=== PATIENT | male | born 1940 | race Caucasian/White ===

== ENCOUNTER 2021-02-07 11:22 | Inpatient (IN) | payer OTHER ==
[~2021-02-07] VITALS: Ht 167.6 cm; Wt 112.8 kg
[~2021-02-07 11:22] MED LIST: ALDACTONE 25MG25 M1 PO; ALEVE 220MG220 MG PO; ANTIVERT 25MG25 MG PO; CALCIUM 600 PLU1 TAB PO; CEPHALEXIN500 M1 PO; COZAAR100 MG PO; CRESTOR5 MG PO; FISH OIL 1000MG1 CAP PO; HCTZ 25MG25 MG PO; INDERAL; LEVAQUIN 750MG750 M1 PO; LOPID 600M600 MG/TAB PO; LOTREL 2.5 MG-11 CAP PO; MAGNESIUM200 MG PO; MOTRIN 600600 MG/TAB PO; MUCINEX 60600 MG/TA1 PO; MVI; NATURE'S BLEND500 M1 PO; NORVASC2.5 MG PO; OSCAL 500 TAB500 MG PO; TRIGLYCERIDE; TYLENOL 325MG325 MG PO
[2021-03-30] VITALS (12 sets, daily range): BP systolic 119–142; BP diastolic 44–79; PULSE 52–90; TEMP 97.8–98.8
[2021-03-30] MEDS ORDERED: NORVASC 5MG5 MG/TAB PO (06:47)
[2021-03-30] MEDS ORDERED: ASPIRIN 81M81 MG/TA2 PO (06:48)
[2021-03-30] MEDS ORDERED: HCTZ 25MG TAB25 MG PO (06:49)
[2021-03-30] MEDS ORDERED: COZAAR100 MG PO (06:50)
[2021-03-30] MEDS ORDERED: PRILOSEC 20MG20 MG PO (06:51)
[2021-03-30] MEDS ORDERED: CRESTOR 10MG10 MG PO (06:52)
--- NOTE | 2021-03-30 10:15 | NUR ---
PATIENT ADMITED INTO ROOM 329 POST OP LTK. LEFT KNEE DRESSING IS CD&I WITH ACEWRAP AND ICE PACK INPLACE. PATIENT IS ABLE TO SL WIGGLES TOES TO BLE. NO C/O PAIN OR NAUSEA. POST OP FLUIDS INFUSING INTO LEFT HAND IV. NO MCKEON. LIQUIDS PROVIDED AT BEDSIDE. HEAD TO TOE ASSESSMENT COMPLETE. AT BEDSIDE. ORIENTED TO ROOM. CALL LIGHT IN REACH.
--- NOTE | 2021-03-30 22:26 | NUR ---
REPORT RECEIVED FROM NURSE BHAGAT. PATIENT RECEIVED IN BED, ALERT AND ORIENTED X4. APPEARED ON O APPARENT DISTRESS. TYLENOL ADMINISTERED FOR MILD KNEE PAIN. L KNEE DRESSING WITH MARGARETTE WRAP C/D/I. PATIENT VOIDS IN URINAL. DENIES NAUSEA/VOMITING. ICE APPLIED TO KNEE. CALL LIGHT WITHIN REACH. WILL CONTINUE TO MONITOR.
[2021-03-31] VITALS (7 sets, daily range): BP systolic 110–142; BP diastolic 49–72; PULSE 62–83; TEMP 98–99.7
[2021-03-31 06:59] LABS: HEMOGLOBIN 12.4 g/dl (13.5-18.0)
[2021-03-31 07:14] LABS: HEMATOCRIT 36.1 % (42.0-52.0)
--- NOTE | 2021-03-31 10:14 | NUR ---
SW met with the patient to discuss discharge plan. The patient lives in [place] with his , Laura (ph#[phone]). He reports independence with ADLs and has a walker. The patient's PCP is Dr. Lentz on the Blue Team at the [facility]. He receives his medications through the [facility] and at [facility]. The patient does not have a DPOA-HC in EMR, but he states that he does have one completed and that it designates his . The patient plans to return home with his and receive outpatient PT at [facility] upon discharge. No additional needs at this time. *Discharge plan: home with and outpatient PT*
--- NOTE | 2021-03-31 10:31 | NUR ---
Initial visit; Patient thanked Tube Coverer for looking in on him and offering God's blessings.
--- NOTE | 2021-03-31 12:00 | NUR ---
Patient is doing well this morning. Pain is well controlled. Changed the dressing from bulky dressing to aquacel. Incision well approximated, no drainage, no reddness, no bruising noted. Slight edema noted. YANG hose placed to left leg after dressing change. Fresh ice to left knee. No other changes at this time. Call light within reach.
--- NOTE | 2021-03-31 18:30 | NUR ---
Patient did well today. Pain well controlled with pain medications. No complaints of nausea. Patient sat up in the chair most the day. Patient should be discharging tomorrow. No other changes at this time. Call light within reach.
--- NOTE | 2021-03-31 20:30 | NUR ---
Pt. sitting up in bed. Pt. is A&OX3, assessment complete. INT to lt. forearm patent. Pt. reports pain at a 6 on pain scale, gaving pain meds per orders. Pt. denies further needs, call light within reach.
[2021-04-01 04:55] VITALS: BP 108/52; PULSE 58; TEMP 98.5
[2021-04-01 08:04] VITALS: BP 108/52; PULSE 67; TEMP 98.1
[2021-04-01] MEDS ORDERED: ASPI325T6 PO (09:58)
[2021-04-01] MEDS ORDERED: ULTRAM 50MG TAB50 MG PO (09:58)
[2021-04-01] MEDS ORDERED: NORCO 325 MG-51 TAB PO (09:58)
[2021-04-01] MEDS ORDERED: SENOKOT S 50 MG1 TAB PO (09:59)
--- NOTE | 2021-04-01 10:00 | NUR ---
Patient will be discharging home this afternoon. His went home and will be back at 1300 to pick him up. His pain has been well controlled this morning. Denies nausea. YANG hose to BLE. Dressing to left knee C/D/I. No other changes at this time. Call light within reach.
[2021-04-01 12:06] VITALS: BP 110/60; PULSE 77; TEMP 98.1
--- NOTE | 2021-04-01 13:30 | NUR ---
Patient is discharging home. Discharge instructions discussed with patient. No questions verbalized. INT discontinued. Explained when follow up appointments are with Dr Garcia and PT. All belongings packed up and sent with patient. Explained how to are for wound and when to remove dressing to left knee. Copies of discharge instructions sent with patient. Patient walked out via wheel chair by Janeth VACA.
== END 2021-04-01 13:45 | disposition home or self-care (01) | DRG 470 ==
LOC: SURG 03-28 07:30 → INPTSU 03-30 05:31 → SURG 03-30 07:30
PROVIDERS: ADMIT Orthopaedic Surgery
PROC: 0SRD0J9 Replacement of Left Knee Joint with Synthetic Substitute, Cemented, Open Approach (ICD-10-PCS; principal; 2021-03-30 07:30)
DX: M17.12 Unilateral primary osteoarthritis, left knee (principal)
CPT/HCPCS: C1713; C1776; J0690; J2704; J7030; J7120

== ENCOUNTER 2021-06-26 11:54 | Inpatient (IN) | payer OTHER ==
[~2021-06-26] VITALS: Ht 172.7 cm; Wt 109.0 kg
[~2021-06-26 11:54] MED LIST changes: +ASPI325T6 PO; +ASPIRIN 81M81 MG/TA2 PO; +CRESTOR 10MG10 MG PO; +HCTZ 25MG TAB25 MG PO; +NORCO 325 MG-51 TAB PO; +NORVASC 5MG5 MG/TAB PO; +PRILOSEC 20MG20 MG PO; +SENOKOT S 50 MG1 TAB PO; +ULTRAM 50MG TAB50 MG PO
[2021-08-07] VITALS (11 sets, daily range): BP systolic 104–127; BP diastolic 58–81; PULSE 51–90; TEMP 97.4–98.2
--- NOTE | 2021-08-07 10:20 | NUR ---
PATIENT SETTLED BY RN. A&O. AVANI. RTK DRESSING IS CD&I WITH ACEWRAP AND ICE PACK INPLACE. TEDS TO LLE. SCD'S TO BLE. AT BEDSIDE. ORIENTED TO ROOM CALL LIGHT IN REACH. HEAD TO TOE ASSESSMENT COMPLETE.
--- NOTE | 2021-08-07 12:00 | NUR ---
PATIENT REPORTS HIS PAIN IS DOWN AND TOLERABLE. DENIES NEED FOR ADDIATIONAL PAIN MEDS AT THIS TIME. VSS. PATIENT RESTING COMFORTABLY WITHOUT ANY NEEDS. CALL LIGHT IN REACH.
--- NOTE | 2021-08-07 20:00 | NUR ---
Pt. sitting up in bed. Pt. is a&OX3, assessment complete. INT to rt. forearm patent. Pt. reports pain at a 3 on pain scale, will give pain meds per orders. Pt. ambultated to the bathroom and back without complications. Pt. denies further needs, call light within reach.
[2021-08-08] VITALS (8 sets, daily range): BP systolic 102–133; BP diastolic 49–79; PULSE 51–97; TEMP 97.8–99.1
[2021-08-08 06:43] LABS: HEMATOCRIT 35.6 % (42.0-52.0)
--- NOTE | 2021-08-08 08:00 | NUR ---
PATIENT IS A&O. VSS WITH NOTED B/P OF 105/62, AM B/P MEDS HELD. RATES PAIN AT 2-3 ON PAIN SCALE IN RLE. PATIENT WAS GIVEN PAIN MEDS BEFORE SHIFT CHANGE. RTK POST OP ACEWRAP DRESSING IS CHANGED AND AQUACEL DRESSING APPLIED. TEDS TO LLE. SCD'S NOW OFF. POSITIVE PEDAL PULSES TO BLE. PATIENT IS EAT/DRINK/VOIDING SUFFICENT AMOUNTS. NO C/O N/V. RIGHT FORARM IV TO INT. AM MEDS GIVEN. HEAD TO TOE ASSESSMENT COMPLETE. NO OTHER NEEDS AT THIS TIME.
--- NOTE | 2021-08-08 12:44 | NUR ---
Referral Agent met with patient to discuss discharge planning. Patient lives in [place] with his , Laura (ph#[phone]) who is at bedside. Patient sees Dr. Lentz with the Blue Team at the [facility] for primary care and also obtains medications from the [facility]. Patient has a cane and walker at home and is normally independent with ADLS. Patient reports he has designated his , Laura as DPOA-HC. Patient plans to return home and advised the plan is for discharge tomorrow. Discharge Plan: Home with outpatient PT
--- NOTE | 2021-08-08 21:15 | NUR ---
Pt. sitting up in bed. Pt. is A&OX3, assessment complete. INT to rt. forearm. Aquacell to rt. knee. Pt. reports pain to rt. knee at a 4 on pain scale, gave pain meds per orders. Pt. ambulated in the drummond with standby assist. Pt. denies further needs. Call light within reach.
[2021-08-09 03:39] VITALS: BP 133/77; PULSE 75; TEMP 98.3
--- NOTE | 2021-08-09 07:00 | NUR ---
resting in bed, bedside shift report received from LONA Martinez, is planning discharge later today
[2021-08-09 07:30] VITALS: BP 119/62; PULSE 72; TEMP 97.7
--- NOTE | 2021-08-09 10:23 | NUR ---
has worked with physical therapy and now sitting up on side of bed, Hernandez KAUR in to see patient and will plan discharge, patient is ready to go as soon as possible, offered shower with occupational therapy or myself and he declines, states he is set up at home and understands how to do this, h as had left knee replaced, full assessment completed, see interventions for further info
[2021-08-09] MEDS ORDERED: ASPI325T6 PO (10:29)
[2021-08-09] MEDS ORDERED: CELEBREX 200MG200 MG PO (10:29)
[2021-08-09] MEDS ORDERED: ROXICODONE 55 MG/TAB PO (10:30)
[2021-08-09] MEDS ORDERED: SENOKOT S 50 MG1 TAB PO (10:30)
[2021-08-09 11:10] VITALS: BP 118/64; PULSE 86; TEMP 98.5
--- NOTE | 2021-08-09 11:10 | NUR ---
discharge instructions given to patient, verbalizs understanding, awaiing his to arrive for his discharge
--- NOTE | 2021-08-09 11:45 | NUR ---
ischarged per WC
== END 2021-08-09 11:45 | disposition home or self-care (01) | DRG 470 ==
LOC: SURG 08-07 05:40 → INPTSU 08-07 05:40 → SURG 08-07 07:30
PROVIDERS: ADMIT Orthopaedic Surgery
PROC: 0SRC0J9 Replacement of Right Knee Joint with Synthetic Substitute, Cemented, Open Approach (ICD-10-PCS; principal; 2021-08-07 07:30)
DX: M17.11 Unilateral primary osteoarthritis, right knee (principal); I10 Essential (primary) hypertension; Z96.652 Presence of left artificial knee joint; Z23 Encounter for immunization
CPT/HCPCS: A9284; C1713; C1776; J0690; J1100; J2250; J2405; J2704; J7030; J7120

== ENCOUNTER 2022-02-16 14:03 | Observation (INO) | payer OTHER ==
[~2022-02-16] VITALS: Ht 167.6 cm; Wt 108.6 kg
[~2022-02-16 14:03] MED LIST changes: +CELEBREX 200MG200 MG PO; +ROXICODONE 55 MG/TAB PO
[2022-02-16 14:47] LABS: BASO % 0.8 % (0.0-2.0); EOS # 0.2 K/mm3 (0.0-0.7); EOS % 4.1 % (0.0-4.0); GRAN # 2.1 K/mm3 (1.4-6.5); GRAN % 51.9 % (42.2-75.2); HEMATOCRIT 37.2 % (42.0-52.0); HEMOGLOBIN 12.5 g/dl (13.5-18.0); LYMPH # 1.3 K/mm3 (1.2-3.4); LYMPH % 33.8 % (20.0-51.0); MEAN CELL VOLUME 94 fl (80.0-100.0); MEAN CORPUSCULAR HEMOGLOBIN 31 pg (27-31); MEAN CORPUSCULAR HGB CONC 34 g/dl (33.0-37.0); MEAN PLATELET VOLUME 9.5 fl (7.4-10.4); MONO # 0.4 K/mm3 (0.1-0.6); MONO % 9.1 % (1.7-9.3); PLATELET COUNT 190 K/mm3 (130-400); RED BLOOD COUNT 3.98 M/mm3 (4.20-5.60); REDCELL DISTRIBUTION WIDTH-CV 12.7 % (11.5-14.5)
[2022-02-16 14:53] LABS: INR 3.7 (0.8-3.0); PROTHROMBIN TIME 42.5 SECONDS (9.7-12.8)
[2022-02-16 15:04] LABS: ALANINE AMINOTRANSFERASE 11 U/L (0-55); ALBUMIN 3.9 gm/dL (3.4-4.8); ALKALINE PHOSPHATASE 82 U/L (40-150); ANION GAP 11 mmol/L (7-16); AST,SGOT 26 U/L (5-34); BILIRUBIN,TOTAL 1.3 mg/dL (0.2-1.2); BLOOD UREA NITROGEN 28 mg/dL (8-26); CALCIUM 8.8 mg/dL (8.4-10.2); CARBON DIOXIDE 24 mmol/L (23-31); CHLORIDE 102 mmol/L (98-107); CREATININE, serum 1.79 mg/dL (0.72-1.25); GLUCOSE 115 mg/dL (70-99); LIPASE 29 U/L (8-78); POTASSIUM 4.4 mmol/L (3.5-4.5); SODIUM 137 mmol/L (136-145); TOTAL PROTEIN 6.8 gm/dL (6.2-8.1)
[2022-02-16 15:24] LABS: TROPONIN-I < 0.010 ng/mL (0.00-0.033); TSH w REFLEX 4.192 uIU/mL (0.350-4.940)
[2022-02-16] MEDS ORDERED: COUMADIN 22.5 MG/TAB PO ×2 (15:59→19:27)
[2022-02-16] MEDS ORDERED: TOPROL XL 25MG25 MG PO (16:00)
[2022-02-16] MEDS ORDERED: METAMUCIL3.4 GM/DOS PO (16:01)
[2022-02-16 16:27] LABS: COLLECTION METHOD CLEAN CATCH
[2022-02-16 16:34] LABS: PH 6 (5-8); SQUAMOUS EPITHELIAL None Seen /hpf (0-10); URINE APPEARANCE Clear (CLEAR/HAZY); URINE BACTERIA None Seen /hpf (NONE SEEN); URINE BILIRUBIN Negative (NEGATIVE); URINE BLOOD Negative (NEGATIVE); URINE COLOR Yellow (YELLOW); URINE GLUCOSE Negative (NEGATIVE); URINE KETONE Negative (NEGATIVE); URINE LEUKOCYTE ESTERASE Negative (NEGATIVE); URINE NITRATE Negative (NEGATIVE); URINE PROTEIN(semi-quant) Negative (NEGATIVE); URINE RBC 0-2 /hpf (0-2); URINE UROBILINOGEN Negative (NEGATIVE)
[2022-02-16 17:52] VITALS: BP 111/63; PULSE 54; TEMP 97.7
--- NOTE | 2022-02-16 19:03 | NUR ---
PATIENT ARRIVED FROM ER IN WHEELCHAIR. AMBULATED TO BED AND AROUND ROOM WITH NO ASSISTIVE DEVICES. NO NURSING INTERVENTIONS. IV IN RAC INFILTRATED, REMOVED. ATTEMPTED TO REPLACE 2X, ASKED CHARGE NURSE TO ATTEMPT. IV FLUIDS DUE AT 1630, NOT HUNG IN ER, WILL RUN WHEN NEW LINE INITIATED. PATIENT VERY FRIENDLY. IN [employer]. AT BEDSIDE.
[2022-02-16] MEDS ORDERED: COZAAR 50MG50 MG/TAB PO (19:22)
[2022-02-16 20:16] VITALS: BP 122/76; PULSE 55; TEMP 97.9
--- NOTE | 2022-02-16 20:30 | NUR ---
Patient is resting in bed, alert and oriented x 4, VSS. Telemetry in place, NSR, Receiving NS 75 ML/HR. Denies dizziness or weakness. Assessment completed, meds provided. No other needs at this time. Call light within reach
[2022-02-16 23:40] VITALS: BP 107/68; PULSE 68; TEMP 97.8
[2022-02-17 04:06] VITALS: BP 112/86; PULSE 50; TEMP 98.3
[2022-02-17 06:17] LABS: BASO % 0.9 % (0.0-2.0); EOS # 0.2 K/mm3 (0.0-0.7); EOS % 3.9 % (0.0-4.0); GRAN # 2.6 K/mm3 (1.4-6.5); GRAN % 55.6 % (42.2-75.2); HEMATOCRIT 38.8 % (42.0-52.0); HEMOGLOBIN 12.2 g/dl (13.5-18.0); LYMPH # 1.4 K/mm3 (1.2-3.4); LYMPH % 30.8 % (20.0-51.0); MEAN CORPUSCULAR HEMOGLOBIN 31 pg (27-31); MEAN CORPUSCULAR HGB CONC 31 g/dl (33.0-37.0); MEAN PLATELET VOLUME 10.1 fl (7.4-10.4); MONO # 0.4 K/mm3 (0.1-0.6); MONO % 8.4 % (1.7-9.3); PLATELET COUNT 179 K/mm3 (130-400); RED BLOOD COUNT 3.89 M/mm3 (4.20-5.60); REDCELL DISTRIBUTION WIDTH-CV 12.9 % (11.5-14.5)
[2022-02-17 06:21] LABS: INR 4.1 (0.8-3.0); MEAN CELL VOLUME 100 fl (80.0-100.0)
[2022-02-17 06:28] LABS: ALBUMIN 3.7 gm/dL (3.4-4.8); CALCIUM 8.8 mg/dL (8.4-10.2); CREATININE, serum 1.31 mg/dL (0.72-1.25); MAGNESIUM 2.1 mg/dL (1.6-2.6); PHOSPHOROUS 3.8 mg/dL (2.3-4.7); POTASSIUM 4.1 mmol/L (3.5-4.5)
[2022-02-17 06:35] LABS: PROTHROMBIN TIME 48.2 SECONDS (9.7-12.8)
--- NOTE | 2022-02-17 06:43 | NUR ---
Patient has had a calm night. When sleeping his heart rate was between 45-55. No symptoms present. He states he feels ok. He continue receiving NS AT 75ml/hr. Report given to day RN.
--- NOTE | 2022-02-17 06:45 | NUR ---
Report received, assumed care for day shift.
[2022-02-17 08:03] VITALS: BP 118/68; PULSE 52; TEMP 97.8
--- NOTE | 2022-02-17 09:00 | NUR ---
Assessment complete. A&Ox3. Denies pain/nausea/shortness of breath. VS stable. Denies being lightheaded/dizzy. Assessment unremarkable. Noted to have swelling/redness/leaking noted to right AC IV site. DCd at this time-cath intact. Patient refused AM medications and is refusing IV placement. States he should be going home and was stuck seven times for previous site. Requesting we wait until after doctor rounds before restarting. Plan of care discussed for this shift to include meds/calling for questions/concerns. Verbalizes understanding. Call light in reach. Will monitor.
--- NOTE | 2022-02-17 10:32 | NUR ---
SHANNAN completed intake with patient. Patient states that he lives in [facility] with his Laura [phone] who is also appointed as his DPOA per patient. Patient states that he should be getting discharged today back to his home as soon as he sees the physician. Patient does not use DME and is independent with ADL's. [facility]. Patient plans to return to his home upon DC and has no questions or conerns. SHANNAN will continue to follow. DC plan: home
--- NOTE | 2022-02-17 11:20 | NUR ---
Discharge instructions given both verbal and handwritten. Discussed f/u appt, s/s of infections, new home medications and lab draws. Instructed to resume coumadin on 02/19. Verbalizes understanding. No INT-was removed earlier in this shift. Tele removed. VS stable. Escorted off floor in wheelchair with MORRIS Xiong and spouse-stable condition.
[2022-02-17] MEDS ORDERED: PROTONIX 40MG T40 MG PO (11:26)
[2022-02-17] MEDS ORDERED: MAG-OX 400400 MG/TAB PO (11:26)
[2022-02-17] MEDS ORDERED: COZAAR 25MG25 MG/TAB PO (11:27)
[2022-02-17] MEDS ORDERED: TOPROL XL 25MG25 MG PO (20:42)
== END 2022-02-17 11:30 | disposition home or self-care (01) ==
LOC: COL.ER 14:03 → MEDICAL 15:43
PROVIDERS: Emergency Medicine; Physician Assistant; ADMIT Internal Medicine
DX: R42 Dizziness and giddiness (principal); I95.9 Hypotension, unspecified; N17.9 Acute kidney failure, unspecified; I48.91 Unspecified atrial fibrillation; Z79.01 Long term (current) use of anticoagulants; E78.5 Hyperlipidemia, unspecified; K52.9 Noninfective gastroenteritis and colitis, unspecified; K21.9 Gastro-esophageal reflux disease without esophagitis
CPT/HCPCS: G0378; J7030; J7120

== ENCOUNTER → 2022-02-19 | Outpatient (CLI) | payer MEDICARE ==
[~2022-02-19] MED LIST changes: +COREG 25MG25 MG/TAB PO; +COUMADIN 22.5 MG/TAB PO; +COZAAR 25MG25 MG/TAB PO; +COZAAR 50MG50 MG/TAB PO; +MAG-OX 400400 MG/TAB PO; +METAMUCIL3.4 GM/DOS PO; +PROTONIX 40MG T40 MG PO; +TOPROL XL 25MG25 MG PO
[2022-02-19 12:03] LABS: INR 3.1 (0.8-3.0); PROTHROMBIN TIME 36.2 SECONDS (9.7-12.8)
[2022-02-19 12:12] LABS: CALCIUM 9.2 mg/dL (8.4-10.2); CREATININE, serum 1.16 mg/dL (0.72-1.25); POTASSIUM 4.3 mmol/L (3.5-4.5)
== END ==
LOC: COL.LAB 11:34
PROVIDERS: Internal Medicine
DX: N17.9 Acute kidney failure, unspecified (principal); R79.1 Abnormal coagulation profile

== ENCOUNTER 2022-02-21 13:29 | Emergency (ER) | payer OTHER ==
[~2022-02-21] VITALS: Ht 167.6 cm; Wt 108.6 kg
[~2022-02-21 13:29] MED LIST changes: -COREG 25MG25 MG/TAB PO
[2022-02-21 13:35] VITALS: TEMP 97.2
[2022-02-21] MEDS ORDERED: COREG 25MG25 MG/TAB PO (13:51)
[2022-02-21 14:05] LABS: BASO # 0.1 K/mm3 (0.0-0.2); BASO % 1.3 % (0.0-2.0); EOS # 0.2 K/mm3 (0.0-0.7); EOS % 5.8 % (0.0-4.0); GRAN % 53.4 % (42.2-75.2); HEMATOCRIT 38.7 % (42.0-52.0); LYMPH # 1.2 K/mm3 (1.2-3.4); LYMPH % 30.6 % (20.0-51.0); MEAN CELL VOLUME 93 fl (80.0-100.0); MEAN CORPUSCULAR HEMOGLOBIN 31 pg (27-31); MEAN CORPUSCULAR HGB CONC 34 g/dl (33.0-37.0); MEAN PLATELET VOLUME 10.1 fl (7.4-10.4); MONO # 0.3 K/mm3 (0.1-0.6); MONO % 8.1 % (1.7-9.3); PLATELET COUNT 216 K/mm3 (130-400); RED BLOOD COUNT 4.16 M/mm3 (4.20-5.60); REDCELL DISTRIBUTION WIDTH-CV 12.6 % (11.5-14.5)
[2022-02-21 14:23] LABS: ALANINE AMINOTRANSFERASE 13 U/L (0-55); ALBUMIN 3.9 gm/dL (3.4-4.8); ALKALINE PHOSPHATASE 101 U/L (40-150); ANION GAP 9 mmol/L (7-16); AST,SGOT 21 U/L (5-34); BILIRUBIN,TOTAL 1.4 mg/dL (0.2-1.2); BLOOD UREA NITROGEN 17 mg/dL (8-26); CALCIUM 9.3 mg/dL (8.4-10.2); CARBON DIOXIDE 23 mmol/L (23-31); CHLORIDE 107 mmol/L (98-107); CREATININE, serum 1.15 mg/dL (0.72-1.25); GLUCOSE 102 mg/dL (70-99); POTASSIUM 4.4 mmol/L (3.5-4.5); SODIUM 139 mmol/L (136-145); TOTAL PROTEIN 7.1 gm/dL (6.2-8.1)
[2022-02-21 14:29] LABS: TROPONIN-I < 0.010 ng/mL (0.00-0.033)
[2022-02-21 15:17] VITALS: BP 126/72; PULSE 42
== END 2022-02-21 15:17 | disposition home or self-care (01) ==
LOC: COL.ER 13:29
PROVIDERS: Student in an Organized Health Care Education/Training Program
DX: R00.1 Bradycardia, unspecified (principal); I48.91 Unspecified atrial fibrillation; Z87.891 Personal history of nicotine dependence; Z79.01 Long term (current) use of anticoagulants

== ENCOUNTER → 2022-02-22 | Outpatient (CLI) | payer MEDICARE ==
[~2022-02-22] MED LIST changes: +COREG 25MG25 MG/TAB PO
[2022-02-22 11:27] LABS: PROTHROMBIN TIME 23.1 SECONDS (9.7-12.8)
[2022-02-22 11:31] LABS: CALCIUM 9.4 mg/dL (8.4-10.2); CREATININE, serum 1.35 mg/dL (0.72-1.25); POTASSIUM 4.4 mmol/L (3.5-4.5)
== END ==
LOC: COL.LAB 10:58
PROVIDERS: Internal Medicine
DX: N17.9 Acute kidney failure, unspecified (principal); R79.1 Abnormal coagulation profile

== ENCOUNTER → 2022-02-27 | Outpatient (CLI) | payer MEDICARE ==
[2022-02-27 10:21] LABS: INR 2.4 (0.8-3.0); PROTHROMBIN TIME 27.7 SECONDS (9.7-12.8)
== END ==
LOC: COL.LAB 10:02
PROVIDERS: Internal Medicine
DX: R79.1 Abnormal coagulation profile (principal)